=== PATIENT | male | born 1950 | race Caucasian/White ===

== ENCOUNTER 2017-06-05 07:31 | Day surgery (SDC) | payer MEDICARE, BC ==
[2017-06-05] MEDS ORDERED: LIDOCAINE 2% MDV (20MG/ML) 20ML VIAL IV ONE ×2 (14:14→14:26)
[2017-06-05] MEDS ORDERED: PROPOFOL 10 MG/ML VIAL IV ONE (14:14)
[2017-06-05] MEDS ORDERED: TOBRAMYCIN 0.3% OPTH DROP 5 ML BTL OPTH ONE (14:26)
[2017-06-05] MEDS ORDERED: PREDNISOLONE ACETATE 1% OPTH 10ML BOTTLE OPTH ONE (14:26)
[2017-06-05] MEDS ORDERED: LIDOCAINE 1% MPF 100MG/10ML STERILE-PAK AMPULE IV ONE (14:26)
[2017-06-05] MEDS ORDERED: TETRACAINE HCL 0.5% 15 ML OPTH BTL OPTH ONE (14:26)
[2017-06-05] MEDS ORDERED: NEOMYCIN/POLY./DEXAM OPTH OINT OPTH ONE (14:26)
[2017-06-05] MEDS ORDERED: EPINEPHRINE 1 MG/ML AMPUL SQ ONE (14:26)
[2017-06-05] MEDS ORDERED: DICLOFENAC SODIUM 2.5 ML DROPS OPTH ONE (14:26)
[2017-06-05] MEDS ORDERED: CIPROFLOXACIN HCL 0.0015 GM, PHENYLEPHRINE HCL 0.0125 GM, KETOROLAC TROMETHAMINE 0.0006... MC ONE ×5 (14:30)
--- NOTE | 2017-06-05 20:24 | OP NOTE CHAMES ---
DATE OF PROCEDURE: 06/05/17 PREOPERATIVE DIAGNOSIS: Nuclear sclerotic cataract, right eye. POSTOPERATIVE DIAGNOSIS: Nuclear sclerotic cataract, right eye. OPERATION: Phacoemulsification of cataractous lens with implantation of intraocular lens. LENS IMPLANT USED: Chen Model PCB00 + 19.5 diopters. COMPLICATIONS: None. PROCEDURE IN DETAIL: Following a retrobulbar and facial block, the patient was prepped and draped in the usual fashion for eye surgery. A lid speculum was placed in the right eye after which a 2.4 mm tunnel wound was placed at the temporal limbus and dissected into clear cornea. A paracentesis was placed at 2 oclock hours to the left and right of the initial incision and the chamber deepened with Viscoelastic. The keratome was then used to enter the anterior chamber after which the continuous circular capsulorrhexis was accomplished without difficulty using a bent needle and a Utrata forceps. Hydrodissection and hydrodelineation of the lens was performed after which the nucleus of the lens was removed using the Phaco handpiece in the [id number] technique. The residual cortical material was irrigated and aspirated from the eye after which the bag and chamber were re-examined. The bag was re-inflated with Viscoelastic and the intraocular lens injected into the capsular bag where it centered well. The Viscoelastic was then copiously irrigated and aspirated from the eye after which the temporal tunnel wound and paracentesis were hydrated and the wounds were examined. They were noted to be watertight. The lid speculum was removed from the eye and the eye patched and shielded. The patient was transferred to the recovery room in satisfactory condition and given an appointment to be reexamined in the clinic later today or as directed by Dr. Lancaster. Jose Juan Lancaster M.D. Date & Time JOB NUMBER: [id number] MTDD
== END 2017-06-05 10:13 | disposition home or self-care (01) ==
LOC: SUR 07:31
PROVIDERS: ATTEND Ophthalmology
DX: H25.11 Age-related nuclear cataract, right eye (principal); I10 Essential (primary) hypertension
CPT/HCPCS: J0171; J3490

== ENCOUNTER 2017-06-19 07:18 | Day surgery (SDC) | payer MEDICARE, BC ==
[~2017-06-19 07:18] MED LIST: CIPROFLOXACIN HCL 0.0015 GM, PHENYLEPHRINE HCL 0.0125 GM, KETOROLAC TROMETHAMINE 0.0006... MC ONE
[2017-06-19] MEDS ORDERED: LIDOCAINE 2% MDV (20MG/ML) 20ML VIAL IV ONE ×2 (14:33→14:57)
[2017-06-19] MEDS ORDERED: KETOROLAC 30 MG/ML VIAL IVP ONE (14:33)
[2017-06-19] MEDS ORDERED: PROPOFOL 10 MG/ML VIAL IV ONE (14:33)
[2017-06-19] MEDS ORDERED: NEOMYCIN/POLY./DEXAM OPTH OINT OPTH ONE (14:57)
[2017-06-19] MEDS ORDERED: EPINEPHRINE 1 MG/ML AMPUL SQ ONE (14:57)
[2017-06-19] MEDS ORDERED: TETRACAINE HCL 0.5% 15 ML OPTH BTL OPTH ONE (14:57)
--- NOTE | 2017-06-21 01:03 | Operative Note ---
DATE OF PROCEDURE: 06/19/17. PREOPERATIVE DIAGNOSIS: Nuclear sclerotic cataract, left eye. POSTOPERATIVE DIAGNOSIS: Nuclear sclerotic cataract, left eye. OPERATION: Phacoemulsification of cataractous lens with implantation of intraocular lens. LENS IMPLANT USED: Chen Model PCB00 + 20.5 diopters. COMPLICATIONS: None. PROCEDURE IN DETAIL: Following a retrobulbar and facial block, the patient was prepped and draped in the usual fashion for eye surgery. A lid speculum was placed in the left eye after which a 2.4 mm tunnel wound was placed at the temporal limbus and dissected into clear cornea. A paracentesis was placed at 2 o'clock hours to the left and right of the initial incision and the chamber deepened with Viscoelastic. The keratome was then used to enter the anterior chamber after which the continuous circular capsulorrhexis was accomplished without difficulty using a bent needle and a Utrata forceps. Hydrodissection and hydrodelineation of the lens was performed after which the nucleus of the lens was removed using the Phaco handpiece in the [id number] technique. The residual cortical material was irrigated and aspirated from the eye after which the bag and chamber were re-examined. The bag was re-inflated with Viscoelastic and the intraocular lens injected into the capsular bag where it centered well. The Viscoelastic was then copiously irrigated and aspirated from the eye after which the temporal tunnel wound and paracentesis were hydrated and the wounds were examined. They were noted to be watertight. The lid speculum was removed from the eye and the eye patched and shielded. The patient was transferred to the recovery room in satisfactory condition and given an appointment to be reexamined in the clinic later today or as directed by Dr. Lancaster. JOB NUMBER: [id number] MTDD
== END 2017-06-19 10:59 | disposition home or self-care (01) ==
LOC: SUR 07:18
PROVIDERS: ATTEND Ophthalmology
DX: H25.12 Age-related nuclear cataract, left eye (principal); I10 Essential (primary) hypertension
CPT/HCPCS: 66984; 00142; J1885; J0171

== ENCOUNTER 2018-03-01 03:49 | Emergency (ER) | payer MEDICARE, BC ==
[2018-03-01] MEDS ORDERED: IPRATROPIUM/ALBUTEROL (0.5MG/3MG) NEB INH ONE (04:15)
[2018-03-01 04:18] LABS: INFLUENZA A NEGATIVE (NEGATIVE); INFLUENZA B POSITIVE (NEGATIVE)
[2018-03-01] MEDS ORDERED: ACETAMINOPHEN 500 MG TABLET PO ONE (04:22)
[2018-03-01] MEDS ORDERED: OSTELTAMIVIR 75 MG CAP PO ONE (04:22)
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
--- NOTE | 2018-03-02 10:43 | RADIOLOGY REPORT ---
EXAM: CHEST, TWO VIEWS HISTORY: FEVER, CHILLS, NONPRODUCTIVE COUGH AND BODY ACHES. TECHNIQUE: Upright PA and lateral views of the chest were obtained. Comparison: Two view chest radiographic examination dated 06/02/15. FINDINGS: The heart is not enlarged. The thoracic aorta is mildly tortuous. No new abnormal lung parenchymal opacity is seen nor is there costophrenic angle blunting or pneumothorax. There are degenerative changes scattered within the visualized spine, stable. IMPRESSION: NO RADIOGRAPHIC EVIDENCE OF ACUTE CARDIOPULMONARY DISEASE. JOB NUMBER: [id number] [facility]
== END 2018-03-01 04:54 | disposition home or self-care (01) ==
LOC: ER 03:49
DX: J10.1 Influenza due to other identified influenza virus with other respiratory manifestations (principal); R50.81 Fever presenting with conditions classified elsewhere
CPT/HCPCS: 71046; 87400; 94640; 99283

== ENCOUNTER 2019-09-14 17:55 | Emergency (ER) | payer MEDICARE, BC ==
[2019-09-14] MEDS ORDERED: HYOSCYAMINE SULFATE ODT 0.125 MG TAB.SUBL SL ONE (18:07)
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
[2019-09-14 18:36] LABS: ABSOLUTE NEUTROPHIL COUNT 5.31; BASO % 0.6 % (0-6); EOS % 2.3 % (0-6); HEMATOCRIT 45.3 % (42.0-52.0); HEMOGLOBIN 15.1 gm/dl (14.0-18.0); MEAN CELL VOLUME 87.6 fl (81-97); MEAN CORPUSCULAR HEMOGLOBIN 29.2 pg (27-33); MEAN CORPUSCULAR HGB CONC 33.3 g/dl (32-36); MEAN PLATELET VOLUME 9.9 fl (7.4-10.4); MONO % 7.1 % (0-9); PLATELET COUNT 245 K/uL (130-400); RED BLOOD COUNT 5.17 M/uL (4.40-5.70); RED CELL DISTRIBUTION WIDTH 13.7 % (11.5-14.5); WHITE BLOOD COUNT W/O DIFF 8.2 K/uL (4.2-12.2)
[2019-09-14 18:43] LABS: BLOOD UREA NITROGEN 26 mg/dL (8-23); CREATININE 0.9 mg/dL (0.7-1.2); EST GLOMERULAR FILTRATION RATE > 60 mL/min
[2019-09-14 18:46] LABS: GLUCOSE,RANDOM 96 mg/dL (74-109)
[2019-09-14 18:49] LABS: ALB/GLOB RATIO 1.4 (1.1-1.8); ALBUMIN 4.1 g/dL (4.0-5.0); ALKALINE PHOSPHATASE 77 U/L (40-129); ALT/SGPT 11 U/L (<41); AST/SGOT 19 U/L (10.0-50.0)
[2019-09-15 14:02] LABS: CRYPTOSPORIDIUM PARVUM ANTIGEN NOT DETECTED (NOT DETECT)
[2019-09-15 14:44] LABS: MOLECULAR C DIFF TOXIN SCREEN NOT DETECTED (NOT DETECT)
== END 2019-09-14 19:42 | disposition home or self-care (01) ==
LOC: ER 17:55
DX: R19.7 Diarrhea, unspecified (principal); R11.2 Nausea with vomiting, unspecified; I10 Essential (primary) hypertension
CPT/HCPCS: 80053; 85025; 87329; 87493; 89055; 99284